=== PATIENT | female | born 1965 | race African-American/Black ===

== ENCOUNTER 2021-01-25 16:59 | Emergency (ER) | payer SELFPAY ==
[~2021-01-25] VITALS: Ht 154.9 cm; Wt 100.0 kg
--- NOTE | 2021-01-25 21:14 | PHYS DOC ---
Past History Additional Past Medical Histor: L side paralysis Past Surgical History: No Surgical History Alcohol Use: None General Adult EDM: Chief Complaint: ALLERGIC REACTION HPI: HPI: ".. I on accident took some tylenol.. and I think it made my tongue swelll.." Patient is a 55 year old female who presents with above hx and complaints Review of Systems: Review of Systems: Constitutional: Denies fever or chills Eyes: Denies change in visual acuity HENT: Denies nasal congestion or sore throat Respiratory: Denies cough or shortness of breath Cardiovascular: Denies chest pain or edema GI: Denies abdominal pain, nausea, vomiting, bloody stools or diarrhea : Denies dysuria Musculoskeletal: Denies back pain or joint pain Integument: Denies rash Neurologic: Denies headache, focal weakness or sensory changes Endocrine: Denies polyuria or polydipsia Lymphatic: Denies swollen glands Psychiatric: Denies depression or anxiety Allergies: Allergies: Allergies Coded Allergies Type Severity Reaction Last Updated Verified acetaminophen Allergy Unknown 01/25/21 Yes Physical Exam: PE: Constitutional: Well developed, well nourished, no acute distress, non-toxic appearance. [] HENT: Normocephalic, atraumatic, bilateral external ears normal, oropharynx moist, no oral exudates, nose normal. [] Eyes: PERRLA, EOMI, conjunctiva normal, no discharge. [] Neck: Normal range of motion, no tenderness, supple, no stridor. [] Cardiovascular:Heart rate regular rhythm, no murmur [] Lungs & Thorax: Bilateral breath sounds clear to auscultation [] Abdomen: Bowel sounds normal, soft, no tenderness, no masses, no pulsatile masses. [] Skin: Warm, dry, no erythema, no rash. [] Back: No tenderness, no CVA tenderness. [] Extremities: No tenderness, no cyanosis, no clubbing, ROM intact, no edema. [] Neurologic: Alert and oriented X 3, normal motor function, normal sensory function, no focal deficits noted. [] Psychologic: Affect normal, judgement normal, mood normal. [] Current Patient Data: Vital Signs: Vital Signs Date Time Temp Pulse Resp B/P (MAP) Pulse Ox O2 Delivery O2 Flow Rate FiO2 01/25/21 19:20 92 18 149/92 (111) 100 Room Air 01/25/21 17:22 98.7 EKG: EKG: [] Radiology/Procedures: Radiology/Procedures: [] Heart Score: Risk Factors: Risk Factors: DM, Current or recent (<one month) smoker, HTN, HLP, family history of CAD, obesity. Risk Scores: Score 0 - 3: 2.5% MACE over next 6 weeks - Discharge Home Score 4 - 6: 20.3% MACE over next 6 weeks - Admit for Clinical Observation Score 7 - 10: 72.7% MACE over next 6 weeks - Early Invasive Strategies Course & Med Decision Making: Course & Med Decision Making Pertinent Labs and Imaging studies reviewed. (See chart for details) [] Dragon Disclaimer: Dragon Disclaimer: This electronic medical record was generated, in whole or in part, using a voice recognition dictation system. Departure Departure: Referrals: PCP,UNKNOWN (PCP) JULIO CESAR PRADO MD Jan 25, 2021 21:13
[2021-01-25] MEDS ORDERED: ALBUTEROL SULFATE 8GM INHALER. INH ONE (21:15)
[2021-01-25] MEDS ORDERED: diphenhydrAMINE HCL 25 MG CAPSULE PO ONE (21:15)
[2021-01-25] MEDS ORDERED: MAGNESIUM HYDROXIDE 2,400 MG/30 ML ORAL.SUSP. PO ONE (21:15)
[2021-01-25] MEDS ORDERED: methylPREDNISolone ACETATE 40 MG/ML VIAL. IM ONE (21:15)
[2021-01-25] MEDS ORDERED: PRED50TA PO (23:07)
[2021-01-25] MEDS ORDERED: FAMO-63 PO (23:07)
[2021-01-25 23:20] LABS: BILIRUBIN,URINE NEG (NEG); CLARITY,URINE CLOUDY; COLOR,URINE AMBER; GLUCOSE,URINE NEG (NEG); NITRITE,URINE POS (NEG); RBC,URINE 0 /HPF (0-2)
[2021-01-25 23:21] LABS: BACTERIA,URINE MANY /HPF (0-FEW); SQUAMOUS EPITHELIAL CELL,UR MOD /LPF
[2021-01-25] MEDS ORDERED: FAMOTIDINE 20 MG TABLET PO ONE (23:30)
[2021-01-25] MEDS ORDERED: CEPH500C PO (23:46)
[2021-01-26 00:29] VITALS: BP 112/63
[2021-01-26] MEDS ORDERED: CEPHALEXIN 250 MG CAPSULE PO ONE (00:30)
== END 2021-01-26 00:29 | disposition home or self-care (01) ==
LOC: ER 17:34
DX: T78.40XA Allergy, unspecified, initial encounter (principal); N39.0 Urinary tract infection, site not specified; Z88.6 Allergy status to analgesic agent; X58.XXXA Exposure to other specified factors, initial encounter
CPT/HCPCS: 81001; 87086; 94640; 96372; 99285; J1030; Q0163; 94664